=== PATIENT | male | born 1990 | race Caucasian/White ===

== ENCOUNTER 2017-10-27 01:24 | Emergency (ER) | payer BC ==
[~2017-10-27] VITALS: Ht 205.7 cm; Wt 111.1 kg
[~2017-10-27 01:24] MED LIST: BENADRYL25 MG PO; CONCERTA36 MG PO; LISINOPRIL10 MG PO; PREDNISONE20 MG PO; ZYRTEC1 MG/ML PO
[2017-10-27] MEDS ORDERED: EPIPEN 2-P0.3 MG/0.3 IJ ×2 (01:46→01:51)
[2017-10-27] MEDS ORDERED: PREDNISONE20 M1 PO ×2 (01:46→01:51)
== END 2017-10-27 01:54 | disposition home or self-care (01) ==
LOC: ED 01:24
DX: T63.441A Toxic effect of venom of bees, accidental (unintentional), initial encounter (principal); Z79.899 Other long term (current) drug therapy; Z91.030 Bee allergy status; Y92.89 Other specified places as the place of occurrence of the external cause